=== PATIENT | female | born 2000 | race Caucasian/White ===

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

== ENCOUNTER 2018-01-05 18:42 | Emergency (ER) | payer OTHER ==
[~2018-01-05] VITALS: Ht 157.5 cm; Wt 77.1 kg
[~2018-01-05 18:42] MED LIST changes: +LO LOESTRIN FE1 EACH PO; +PRILOSEC OTC20 M1 PO
[2018-01-05 18:50] VITALS: BP 142/92
--- NOTE | 2018-01-05 18:52 | ED INFLUENZA/URI COMPLAINT ---
History of Present Illness General Chief Complaint: General Adult Stated Complaint: ?FLU Source: patient Exam Limitations: no limitations Vital Signs & Intake/Output Vital Signs & Intake/Output Vital Signs Date Time Temp Pulse Resp B/P B/P Pulse O2 O2 Flow FiO2 Mean Ox Delivery Rate 01/05 1850 97.8 94 18 142/92 99 Room Air ED Intake and Output 03/ 0000 01/05 1200 Intake Total Output Total Balance Patient 170 lb Weight Weight Reported by Patient Measurement Method Allergies Coded Allergies: NO KNOWN ALLERGIES (09/19/15) Reconcile Medications Cephalexin (Keflex) 500 MG CAP 1 TAB PO 4 TIMES/DAY INFECTION Ibuprofen 800 MG TABLET 1 TAB PO TID fever Mupirocin (Bactroban Oint. 2% 15GM) 15 GM ONT 1 UNIT TOP BID INFECTION Norethindrone-E.estradiol-Iron (Lo Loestrin Fe 1-10 Tablet) 1MG-10(24) TABLET 1 MG PO DAILY CONTROL (Reported) Omeprazole Magnesium (Prilosec Otc) 20 MG TABLET.DR 1 TAB PO DAILY GASTRITIS Oseltamivir Phosphate (Tamiflu) 75 MG CAPSULE 1 CAP PO BID flu Triage Note: PT STATES HER BROTHER HAD THE FLU AND THE PAST 2 DAYS SHE HAS HAD A MOLINA AND SORE THROAT. PT UNSURE OF FEVER STATUS. Triage Nurses Notes Reviewed? yes Onset: Abrupt Duration: day(s): : No Patient currently breastfeeds: No HPI: 17-year-old female comes into the emergency room for further evaluation of headache and body aches chills. Denies any fever. Some mild sore throat. She reports that her brother and boyfriend were both diagnosed with the flu. Positive flu swabs. She comes in to be tested for the flu. Denies any other system symptoms. (Anthony Jiménez) Past History Travel History Traveled to [place] past 21 day No Medical History Any Pertinent Medical History? see below for history Respiratory: asthma Surgical History Surgical History: FOOT SURGERY Psychosocial History What is your primary language Amharic Tobacco Use: Never used ETOH Use: denies use Illicit Drug Use: denies illicit drug use Family History Hx Contributory? No (Anthony Jiménez) Review of Systems Review of Systems Constitutional: Reports: see HPI. EENTM: Reports: see HPI. Respiratory: Reports: no symptoms. Cardiovascular: Reports: no symptoms. GI: Reports: no symptoms. Genitourinary: Reports: no symptoms. Musculoskeletal: Reports: no symptoms. Skin: Reports: no symptoms. Neurological/Psychological: Reports: see HPI. Hematologic/Endocrine: Reports: no symptoms. Immunologic/Allergic: Reports: no symptoms. All Other Systems: Reviewed and Negative (Anthony Jiménez) Physical Exam Physical Exam General Appearance: well developed/nourished, no apparent distress, alert, awake Head: atraumatic, normal appearance Eyes: Bilateral: normal appearance. Ears, Nose, Throat: hearing grossly normal, Tympanic normal, pharynx normal Neck: normal inspection Respiratory: normal breath sounds, no respiratory distress Cardiovascular: regular rate/rhythm Back: normal inspection Extremities: normal inspection Neurologic/Psych: awake, alert, oriented x 3 Skin: intact, normal color Core Measures Sepsis Present: No Sepsis Focused Exam Completed? No (Anthony Jiménez) Progress Differential Diagnosis: influenza, otitis, pneumonia, pharyngitis, sinusitis Plan of Care: Orders Procedure Date/time Status RAPID VIRAL INFLUENZA A 01/05 1852 Complete Microbiology 01/05 1853 NASOPHARYN: Influenza Virus A & B Rapid Smear - COMP Initial ED EKG: none Comments: 01/05/2018 9:22:51 PM Patient clinically looks well. In no apparent distress. Nontoxic-appearing. Patient started on Tamiflu due to her positive flu exposures and her symptoms. If sore throat persists follow-up for strep. Return if any concerns. (Anthony Jiménez) Departure Departure Disposition: HOME OR SELF CARE Condition: Stable Clinical Impression Primary Impression: Flu-like symptoms Referrals: Adiel Vinson MD (PCP/Family) Additional Instructions: Take Tamiflu and ibuprofen as prescribed. Drink plenty fluids. Rest. Return if any concerns worsening symptoms. Please go over all results of today's visit with your primary care doctor. Contact your primary care doctor to let them know you were here in the emergency room. There may be nonspecific findings which may not be related to your visit today here in the emergency room but may require further evaluation and chronic monitoring by your primary care doctor. If you had a laceration today the chance of foreign body always remains. You should follow-up with your primary care doctor for recheck in 3-5 days for a wound check. If you had an x-ray done there is a chance that a fracture could have been missed on initial read and you should follow-up with your primary care doctor for repeat x-rays if symptoms persist. If your blood pressure was elevated here in the emergency room please have rechecked by hyour primary care doctor within the next 48. If you were prescribed a narcotic here in the emergency room or any type of controlled substances you're not allowed to drive while taking this medication or operate any type of heavy machinery. Narcotics can make you feel lightheaded dizziness nausea and can cause constipation. You may need to burr picker a stool softener. Thank you for choosing [facility] emergency room. Please return to the emergency room immediately if you have any other concerns worsening of symptoms. Departure Forms: Customer Survey General Discharge Information Prescriptions: Current Visit Scripts Oseltamivir Phosphate (Tamiflu) 1 CAP PO BID #10 CAP Ibuprofen 1 TAB PO TID #30 TAB (Anthony Jiménez) PA/CORPORATE STAFF ACCOUNTANT Co-Sign Statement Statement: ED Attending supervision documentation- I saw and evaluated the patient. I have also reviewed all the pertinent lab results and diagnostic results. I agree with the findings and the plan of care as documented in the PA's/CORPORATE STAFF ACCOUNTANT's documentation. x I have reviewed the ED Record and agree with the PA's/CORPORATE STAFF ACCOUNTANT's documentation. [] Additions or exceptions (if any) to the PAs/CORPORATE STAFF ACCOUNTANT's note and plan are summarized below: [] (Desi BLACKWOOD,Raúl)
[2018-01-05] MEDS ORDERED: IBUPROFEN800 M1 PO (19:48)
[2018-01-05] MEDS ORDERED: TAMIFLU75 M1 PO (19:48)
== END 2018-01-05 19:54 ==
LOC: ERH 18:42
DX: R51 Headache (principal); M79.1 Myalgia; J02.9 Acute pharyngitis, unspecified
CPT/HCPCS: 87804; 87804-59